=== PATIENT | male | born 1960 | race Caucasian/White ===

== ENCOUNTER 2025-10-22 10:50 | Day surgery (SDC) | payer OTHER ==
[~2025-10-22] VITALS: Ht 182.9 cm; Wt 92.0 kg
[~2025-10-22 10:50] MED LIST: IBLOOD GLUCOSE TEST STRIP 1 EA TEST VI PRN; LACTATED RINGER'S 1,000 ML IV SCH; LIDOCAINE HCL 1% 5 ML SDV INJ ONE; MOUNJARO2.5 MG/0.5 SUB-Q
[2025-10-22 10:56] VITALS: BP 132/80
[2025-10-22] MEDS ORDERED: LIDOCAINE HCL 2% 5 ML SDV ONE (12:26)
[2025-10-22] MEDS ORDERED: GLUCAGON,HUMAN RECOMBINANT 1 MG/ML VIAL ONE (12:29)
--- NOTE | 2025-10-22 13:35 | NUR ---
10/22/25 1335 Sheets,Bere 1329 PT ARRIVED TO PACU ON 6L VIA MASK, PT ASLEEP AND RESP EVEN AND UNLABORED. VSS.
--- NOTE | 2025-10-22 14:32 | OR ---
[facility] [address] [place], [place] [address] Signed DATE OF OPERATION: 10/22/2025 SURGEON: Luly Cruz DO PREOPERATIVE DIAGNOSIS: Colon cancer screening with a history of colon polyps. POSTOPERATIVE DIAGNOSES: 1. Colon cancer screening with a history of colon polyps with diverticulosis. 2. Internal hemorrhoids. PROCEDURE PERFORMED: Colonoscopy. ANESTHESIA: IV sedation. ESTIMATED BLOOD LOSS: None. DRAINS: None. COMPLICATIONS: None. DESCRIPTION OF PROCEDURE: The patient was brought to the GI lab, placed in supine position. After induction of IV sedation, the patient was placed in left lateral position, padded to satisfaction of anesthesia. The Olympus video colonoscope was then introduced into the rectum and while insufflating and under direct visualization the scope was advanced to the rectosigmoid, sigmoid colon, descending colon, transverse colon, ascending colon into the cecum. The colon was then insufflated and mucosal surface inspection was carried out. The cecum and ascending colon had no intrinsic or extrinsic masses appreciated. Scope was brought back to the hepatic flexure in the transverse colon. No intrinsic or extrinsic masses. No lesions or ulcerations were noted. Scope was advanced into the descending colon. No intrinsic or extrinsic masses, no lesions or ulcerations were noted. The scope was then brought back into the sigmoid colon. Some large diffuse diverticula were noted but no evidence of diverticulitis was present. No other intrinsic or extrinsic mass appreciated. Rectosigmoid had scattered diverticula as well. No intrinsic or extrinsic Electronically Signed By: LULY CRUZ DO 10/22/25 1432 PATIENT NAME: JARRETT PALACIOS OPERATIVE REPORT DATE OF : 64 REPORT #: [id number] PHYSICIAN: LULY CRUZ DO PCP: DUKE GONZALEZ PA-C REPORT IS CONFIDENTIAL AND NOT TO BE RELEASED WITHOUT AUTHORIZATION [address] [address] Signed masses. No evidence of diverticulitis. Scope was then brought back into the rectum. Some large internal hemorrhoids were noted. No bleeding signs were apparent. The scope was withdrawn. The patient tolerated the procedure well and taken to recovery room in satisfactory condition. DO LA Zepeda/FITO /[id number] Copies: ~ Electronically Signed By: LULY CRUZ DO 10/22/25 1432 PATIENT NAME: JARRETT PALACIOS OPERATIVE REPORT DATE OF : 64 REPORT #: [id number] PHYSICIAN: LULY CRUZ DO PCP: BROWN,DUKE PA-C REPORT IS CONFIDENTIAL AND NOT TO BE RELEASED WITHOUT AUTHORIZATION
[2025-10-22 14:48] VITALS: BP 104/77
== END 2025-10-22 14:11 ==
LOC: DS 10:50 → OPS 10:50 → DS 12:30 → OPS 12:30 → DS 14:00 → OPS 14:11
PROVIDERS: ATTEND Surgery
PROC: 0DJD8ZZ Inspection of Lower Intestinal Tract, Via Natural or Artificial Opening Endoscopic (ICD-10-PCS; principal; 2025-10-22 12:30)
DX: Z12.11 Encounter for screening for malignant neoplasm of colon (principal); Z86.0101 Personal history of adenomatous and serrated colon polyps; K57.30 Diverticulosis of large intestine without perforation or abscess without bleeding; K64.8 Other hemorrhoids; E78.5 Hyperlipidemia, unspecified; R73.01 Impaired fasting glucose
CPT/HCPCS: 00811; J1610; J2003; J2704